=== PATIENT | female | born 1990 | race Caucasian/White ===

== ENCOUNTER 2025-02-21 23:08 | Emergency (ER) | payer SELFPAY ==
[2025-02-22 00:03] LABS: Sqamous Epithelial <5 /HPF (None Seen); Urine Crystals Unidentified Few /HPF (None Seen); Urine Micro Reflex YN NO BILL MICROSCOPIC
[2025-02-22 00:08] LABS: ALT/SGPT 46 U/L (13-56); AST/SGOT 230 U/L (15-37); Albumin 2.7 g/dL (3.4-5.0); Albumin/Globulin Ratio 0.6 (1.1-1.8); Alkaline Phosphatase 216 U/L (45-117); Anion Gap 11.6 mEq/L (5.0-15.0); Bilirubin Indirect, Calculated 0.4 mg/dL (0.2-0.8); Globulin 4.6 g/dL (2.3-3.5); Glucose Level 86 mg/dL (74-106); Magnesium 2.0 mg/dL (1.6-2.4); NT PRO-BNP 127 pg/mL (<125); Potassium 3.6 mEq/L (3.5-5.1)
[2025-02-22 00:24] LABS: BUN Blood Urea Nitrogen < 3 mg/dL (7-18); Troponin High Sensitivity < 3.0 pg/mL (<58.9)
[2025-02-22 00:43] LABS: Absolute Lymphocytes (CBC) 1.6 K/uL (0.7-4.9); Hematocrit 27.2 % (36.0-45.0); Hemoglobin 9.3 g/dL (12.0-15.0); MCH 33.5 pg (27.0-35.0); MCHC 34.3 g/dL (32.0-36.0); MCV 97.7 fL (80-100); MPV 8.6 fL (7.6-11.3); Nucleated RBC Absolute Count 0.0 (0-0); Nucleated Red Blood Cells % 0.2 % (0-0); RBC Red Blood Cell Count 2.78 M/uL (3.86-4.86); White Blood Count 4.70 thou/uL (4.3-10.9)
--- NOTE | 2025-02-22 02:00 | RAD REPORT ---
EXAM DESCRIPTION: Chest Single View CLINICAL HISTORY: SOB COMPARISON: None TECHNIQUE: Single AP view of the chest. FINDINGS: Lung volumes adequate. Cardiac silhouette is normal in size. No pneumothorax. No large pleural effusion. No focal consolidation. No acute bony finding. IMPRESSION: No evidence of acute cardiopulmonary disease. Electronically signed by: Matthias Feldman MD 02/22/2025 01:53 AM CDT RP TYG Due to temporary technical issues with the PACS/[employer] reporting system, reports are being fiorella d by the in-house radiologist without review as a courtesy to ensure prompt reporting the interpreting radiologist is fully responsible for the content of the report. Transcribed Date/Time: 02/22/2025 1:59 AM
--- NOTE | 2025-02-22 04:39 | ER ---
Nurse's Notes [facility] Name: Pernell Moses Age: 34 yrs Sex: Female : 1990 Arrival Date: 02/21/2025 Time: 23:08 Bed 16 Private MD: Diagnosis: Thrombocytopenia, unspecified;Ascities;Anemia, unspecified;Other cholelithiasis without obstruction Presentation: 02/21 23:19 Chief complaint: Patient states: I have this new swelling of the belly legs and feet. bm8 Coronavirus screen: At this time, the client does not indicate any symptoms associated with coronavirus-19. Ebola Screen: Patient negative for fever greater than or equal to 101.5 degrees Fahrenheit, and additional compatible Ebola Virus Disease symptoms Patient denies exposure to infectious person. Patient denies travel to an Ebola-affected area in the 21 days before illness onset. No symptoms or risks identified at this time. Initial Sepsis Screen: Does the patient meet any 2 criteria? No. Patient's initial sepsis screen is negative. Does the patient have a suspected source of infection? No. Patient's initial sepsis screen is negative. Risk Assessment: Do you want to hurt yourself or someone else? Patient reports no desire to harm self or others. Onset of symptoms was February 17, 2025. 23:19 Method Of Arrival: Ambulatory bm8 23:19 Acuity: DELORES 3 bm8 Triage Assessment: 23:21 General: Appears in no apparent distress. uncomfortable, Behavior is calm, cooperative, bm8 appropriate for age. Pain: Complains of pain in abdomen, right foot, left foot, right leg and left leg Pain currently is 5 out of 10 on a pain scale. Quality of pain is described as pressure. GI: Abdomen is round distended, noted to have ascites, Bowel sounds tympanic in right upper quadrant, left upper quadrant, right lower quadrant and left lower quadrant Reports lower abdominal pain, upper abdominal pain. 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 - Infectious Disease History:: Denies. - Social history:: Smoking status: Reported history of juuling and/or vaping. Patient uses alcohol, on a daily basis. Patient/guardian denies using street drugs. Screenin:27 [facility] ED Fall Risk Assessment (Adult) History of falling in the last 3 months, kt5 including since admission No falls in past 3 months (0 pts) Confusion or Disorientation No (0 pts) Intoxicated or Sedated No (0 pts) Impaired Gait No (0 pts) Mobility Assist Device Used No (0 pt) Altered Elimination No (0 pt) Score/Fall Risk Level 0 - 2 = Low Risk. Abuse screen: Denies threats or abuse. Nutritional screening: No deficits noted. Tuberculosis screening: No symptoms or risk factors identified. 23:46 Clinical [place] Withdrawal Assessment for Alcohol, revised ([facility]): kt5 Nausea/Vomitin - No nausea or vomiting Headache: 0 - Not present Paroxysmal Sweats: 0 - No sweats visible Anxiety: 0 - No anxiety, at ease Agitation: 0 - Normal actiivty Tremor: 0 - No tremor Auditory Disturbances: 0 - Not present Visual Disturbances: 0 - Not present Tactile Disturbances: 0 - None Orientation and Clouding of Sensorium: 0 - Oriented and can do serial additions. 02/22 03:38 Clinical [place] Withdrawal Assessment for Alcohol, revised ([facility]): kt5 Nausea/Vomitin - No nausea or vomiting Headache: 0 - Not present Paroxysmal Sweats: 0 - No sweats visible Anxiety: 0 - No anxiety, at ease Agitation: 0 - Normal actiivty Tremor: 0 - No tremor Auditory Disturbances: 0 - Not present Visual Disturbances: 0 - Not present Tactile Disturbances: 0 - None Orientation and Clouding of Sensorium: 0 - Oriented and can do serial additions. 07:04 Clinical [place] Withdrawal Assessment for Alcohol, revised ([facility]): kt5 Nausea/Vomitin - No nausea or vomiting Headache: 0 - Not present Paroxysmal Sweats: 0 - No sweats visible Anxiety: 0 - No anxiety, at ease Agitation: 0 - Normal actiivty Tremor: 0 - No tremor Auditory Disturbances: 0 - Not present Visual Disturbances: 0 - Not present Tactile Disturbances: 0 - None Orientation and Clouding of Sensorium: 0 - Oriented and can do serial additions. Assessment: 02/21 23:27 General: Appears in no apparent distress. uncomfortable, Behavior is calm, cooperative, kt5 appropriate for age, Smells of alcohol. Pain: Complains of pain in generalized body pain, bilateral flank pain, abd pain, bilateral lega and feet pain. Pain:. Neuro: No deficits noted. [place] Agitation-Sedation Scale (RASS): 0 - Alert and Calm Level of Consciousness is awake, alert, obeys commands, Oriented to person, place, time, situation, Appropriate for age. Cardiovascular: No deficits noted. Denies chest pain, Heart tones S1 S2 present Capillary refill < 3 seconds Clubbing of nail beds is absent JVD is absent. Respiratory: Reports shortness of breath at rest on exertion Airway is patent Trachea midline Respiratory effort is even, unlabored, Respiratory pattern is regular, symmetrical. GI: Abdomen is round distended, Bowel sounds present X 4 quads. Abd is soft X 4 quads Abdomen is tender to palpation X 4 quads. Reports lower abdominal pain, upper abdominal pain, bloating, Pain is 5 out of 10 on a pain scale. GI: Reports diarrhea, nausea, vomiting. : No deficits noted. No signs and/or symptoms were reported regarding the genitourinary system. EENT: No deficits noted. No signs and/or symptoms were reported regarding the EENT system. Derm: No deficits noted. No signs and/or symptoms reported regarding the dermatologic system. Skin is intact, is healthy with good turgor, Skin is dry, Skin is normal. Musculoskeletal: No deficits noted. No signs and/or symptoms reported regarding the musculoskeletal system. 23:55 General: tech at for pcxr. kt5 02/22 00:24 Reassessment: Patient appears in no apparent distress at this time. No changes from kt5 previously documented assessment. Patient and/or family updated on plan of care and expected duration. Pain level reassessed. Patient is alert, oriented x 3, equal unlabored respirations, skin warm/dry/pink. 01:24 Reassessment: Patient appears in no apparent distress at this time. No changes from kt5 previously documented assessment. Patient and/or family updated on plan of care and expected duration. Pain level reassessed. Patient is alert, oriented x 3, equal unlabored respirations, skin warm/dry/pink. Patient states symptoms have improved. 02:17 Reassessment: Patient appears in no apparent distress at this time. No changes from kt5 previously documented assessment. Patient and/or family updated on plan of care and expected duration. Pain level reassessed. Patient is alert, oriented x 3, equal unlabored respirations, skin warm/dry/pink. Patient states symptoms have improved. 02:18 General: pt to ct with tech. kt5 03:00 Reassessment: Patient appears in no apparent distress at this time. No changes from kt5 previously documented assessment. Patient and/or family updated on plan of care and expected duration. Pain level reassessed. Patient is alert, oriented x 3, equal unlabored respirations, skin warm/dry/pink. Patient states symptoms have improved. 04:09 Reassessment: Patient appears in no apparent distress at this time. No changes from kt5 previously documented assessment. Patient and/or family updated on plan of care and expected duration. Pain level reassessed. Patient is alert, oriented x 3, equal unlabored respirations, skin warm/dry/pink. Patient states symptoms have improved. 05:01 Reassessment: Patient appears in no apparent distress at this time. No changes from kt5 previously documented assessment. Patient and/or family updated on plan of care and expected duration. Pain level reassessed. Patient is alert, oriented x 3, equal unlabored respirations, skin warm/dry/pink. Patient states symptoms have improved. 06:01 Reassessment: Patient appears in no apparent distress at this time. No changes from kt5 previously documented assessment. Patient and/or family updated on plan of care and expected duration. Pain level reassessed. Patient is alert, oriented x 3, equal unlabored respirations, skin warm/dry/pink. Patient denies pain at this time. Patient states feeling better. Patient states symptoms have improved. 06:15 General: report given to Nam arcos at [facility], all questions answered. kt5 07:04 Reassessment: Patient appears in no apparent distress at this time. No changes from kt5 previously documented assessment. Patient and/or family updated on plan of care and expected duration. Pain level reassessed. Patient is alert, oriented x 3, equal unlabored respirations, skin warm/dry/pink. Patient denies pain at this time. Patient states feeling better. Patient states symptoms have improved. Vital Signs: 02/21 23:19 BP 103 / 84; Pulse 90; Resp 18; Temp 98.1; Pulse Ox 100% ; Weight 47.49 kg; Pain 5/10; bm8 1011 00:24 BP 100 / 62; Pulse 87; Resp 18; Pulse Ox 98% on R/A; kt5 01:24 BP 90 / 59; Pulse 89; Resp 16; Pulse Ox 96% ; Pain 3/10; kt5 02:17 BP 102 / 63; Pulse 86; Resp 16; Pulse Ox 99% ; kt5 03:00 Pulse 87; Resp 16; Pulse Ox 96% ; kt5 04:09 BP 91 / 56; Pulse 81; Resp 16; Pulse Ox 94% ; Pain 0/10; kt5 05:01 BP 90 / 57; Pulse 82; Resp 16; Pulse Ox 96% ; Pain 0/10; kt5 06:01 BP 91 / 60; Pulse 82; Resp 16; Pulse Ox 99% ; kt5 06:18 BP 92 / 65; Pulse 81; Resp 16; Temp 98.6; Pulse Ox 99% ; Pain 0/10; kt5 07:04 BP 103 / 70; Pulse 89; Resp 16; Temp 98.4; Pulse Ox 100% ; Pain 0/10; kt5 07:19 BP 100 / 67; Pulse 79; Resp 13; Pulse Ox 99% ; bp 10/10 23:19 Pain Scale: Adult bm8 01:24 Pain Scale: Adult kt5 04:09 Pain Scale: Adult kt5 05:01 Pain Scale: Adult kt5 06:18 Pain Scale: Adult kt5 07:04 Pain Scale: Adult kt5 ED Course: 02/21 23:11 Patient arrived in ED. mr 23:12 Prince Thakur DO is Attending Physician. ms3 23:16 Hamida Leong, RACHEAL is Primary Nurse. kt5 23:21 Triage completed. bm8 23:21 Arm band placed on right wrist. bm8 23:27 Patient has correct armband on for positive identification. Bed in low position. Call kt5 light in reach. Side rails up X 1. Adult w/ patient. Client placed on continuous cardiac and pulse oximetry monitoring. NIBP monitoring applied. Door closed. Noise minimized. Warm blanket given. Pillow given. 23:27 Inserted saline lock: 18 gauge in left forearm, using aseptic technique. Blood kt5 collected. Flushed with 10 mL NS. 23:35 Basic Metabolic Panel Sent. kt5 23:35 CBC with Diff Sent. kt5 23:35 LFT's Sent. kt5 23:35 Magnesium Sent. kt5 23:35 NT PRO-BNP Sent. kt5 23:35 Troponin HS Sent. kt5 23:44 UA W/ Microscopic Sent. kt5 23:46 Provided Education on: drinking and consequences . kt5 23:46 No provider procedures requiring assistance completed. kt5 02/22 00:35 XRAY Chest (1 view) In Process Unspecified. EDMS 00:36 CBC with Diff Sent. kt5 02:22 CT Abd/Pelvis - IV Contrast Only In Process Unspecified. EDMS 03:38 Report given to miriam arcos, all questions answered. kt5 05:09 Inserted saline lock: 18 gauge in right forearm, using aseptic technique. Flushed with kt5 10 mL NS. Administered Medications: 05:42 CANCELLED (Physician Discretion): ns 0.9% 1000 ml IV at 1000 ml once; to be given as a ms3 bolus over 60 minutes 05:53 Drug: Albumin IVPB 25 grams 100 ml IVPB once; (Note: Albumin 25% concentration) Volume: ha1 100 ml; Route: IVPB; Site: left wrist; 06:18 Follow up: Response: No adverse reaction kt5 05:53 Drug: NS 0.9% IV 500 ml IV at bolus once; to be given as a bolus over 30 minutes Route: ha1 IV; Rate: bolus; Site: left wrist; 07:12 Follow up: IV Status: Completed infusion; IV Intake: 500ml kt5 Medication: 02/21 23:27 VIS not applicable for this client. kt5 Intake: 02/22 07:12 IV: 500ml; Total: 500ml. kt5 Outcome: 04:38 ER care complete, transfer ordered by . ms3 07:53 Patient left the ED. ll1 Signatures: Dispatcher [employer] EDMS MujicaMayra ybarra, Reg Reg mr Saturnino Armas, RN RN Keaton Linares RN RN ll1 Prince Thakur DO DO ms3 Hannah Guerrero, RN RN ha1 Benson Ye, RN RN bm8 Hamida Leong, RN RN kt5 Corrections: (The following items were deleted from the chart) 02/21 23:45 23:27 Derm: No deficits noted. No signs and/or symptoms reported regarding the kt5 dermatologic system. Skin is intact, Skin is dry, Skin is kt5 02/22 07:08 07:04 Clinical [place] Withdrawal Assessment for Alcohol, revised ([facility]-Ar): kt5 Nausea/Vomitin - No nausea or vomiting Headache: 0 - Not present Paroxysmal Sweats: 0 - No sweats visible Anxiety: 0 - No anxiety, at ease Agitation: 0 - Normal actiivty Tremor: 0 - No tremor Auditory Disturbances: 0 - Not present Visual Disturbances: 0 - Not present Tactile Disturbances: 0 - None Orientation and Clouding of Sensorium: 0 - Oriented and can do serial additions kt5
--- NOTE | 2025-02-22 04:39 | EDPHYS ---
Physician Documentation [facility] Name: Pernell Moses Age: 34 yrs Sex: Female : 1990 Arrival Date: 02/21/2025 Time: 23:08 Bed 16 Private MD: ED Physician Prince Thakur HPI: 02/21 23:31 This 34 yrs old Female presents to ER via Ambulatory with complaints of Abdominal ms3 Swelling, Feet Swelling, Leg Swelling. 23:31 34-year-old female with no past medical history presents to the emergency department ms3 for lower extremity swelling, abdominal swelling, shortness of breath. Patient states she was seen at [facility] yesterday and was given fluids and had a chest x-ray performed and was told everything was okay and was discharged. Patient states her discomfort is currently a 5/10 and described as pressure in her abdomen and lower extremities due to swelling.. 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 - Infectious Disease History:: Denies. - Social history:: Smoking status: Reported history of juuling and/or vaping. Patient uses alcohol, on a daily basis. Patient/guardian denies using street drugs. ROS: 23:31 Constitutional: Negative for fever, and chills. Cardiovascular: Negative for chest ms3 pain, and palpitations. 23:31 MS/Extremity: Negative for injury and deformity, 23:31 Cardiovascular: Positive for edema, 23:31 Respiratory: Positive for shortness of breath, 23:31 MS/extremity: Exam: 23:31 Constitutional: This is a well developed, well nourished patient who is awake, alert, ms3 and in no acute distress. Cardiovascular: Regular rate and rhythm with a normal S1 and S2. No gallops, murmurs, or rubs. Normal PMI, no JVD. No pulse deficits. Respiratory: Lungs have equal breath sounds bilaterally, clear to auscultation and percussion. No rales, rhonchi or wheezes noted. No increased work of breathing, no retractions or nasal flaring. Abdomen/GI: Soft, non-tender, with normal bowel sounds. No distension or tympany. No guarding or rebound. No evidence of tenderness throughout. Skin: Warm, dry with normal turgor. Normal color with no rashes, no lesions, and no evidence of cellulitis. 23:31 Musculoskeletal/extremity: Extremities: all appear grossly normal, with no appreciated pain with palpation, No pitting edema noted. 02/22 00:16 ECG was reviewed by the Attending Physician. ms3 Vital Signs: 02/21 23:19 BP 103 / 84; Pulse 90; Resp 18; Temp 98.1; Pulse Ox 100% ; Weight 47.49 kg; Pain 5/10; bm8 02/22 00:24 BP 100 / 62; Pulse 87; Resp 18; Pulse Ox 98% on R/A; kt5 01:24 BP 90 / 59; Pulse 89; Resp 16; Pulse Ox 96% ; Pain 3/10; kt5 02:17 BP 102 / 63; Pulse 86; Resp 16; Pulse Ox 99% ; kt5 03:00 Pulse 87; Resp 16; Pulse Ox 96% ; kt5 04:09 BP 91 / 56; Pulse 81; Resp 16; Pulse Ox 94% ; Pain 0/10; kt5 05:01 BP 90 / 57; Pulse 82; Resp 16; Pulse Ox 96% ; Pain 0/10; kt5 06:01 BP 91 / 60; Pulse 82; Resp 16; Pulse Ox 99% ; kt5 06:18 BP 92 / 65; Pulse 81; Resp 16; Temp 98.6; Pulse Ox 99% ; Pain 0/10; kt5 07:04 BP 103 / 70; Pulse 89; Resp 16; Temp 98.4; Pulse Ox 100% ; Pain 0/10; kt5 07:19 BP 100 / 67; Pulse 79; Resp 13; Pulse Ox 99% ; bp 02/21 23:19 Pain Scale: Adult bm8 01:24 Pain Scale: Adult kt5 04:09 Pain Scale: Adult kt5 05:01 Pain Scale: Adult kt5 06:18 Pain Scale: Adult kt5 07:04 Pain Scale: Adult kt5 MDM: 02/21 23:31 Differential Diagnosis Heart failure versus liver disease versus nephrotic syndrome. ms3 23:33 Medical Screening Exam initiated ms3 02/22 05:44 Data reviewed: vital signs, nurses notes, lab test result(s), radiologic studies, and ms3 as a result, I will transfer patient to [facility]. Consideration of Admission/Observation Patient transferred to [facility]. Management of patient was discussed with the following: Hospitalist: Dr Shi. I considered the following discharge prescriptions or medication management in the emergency department Medications were administered in the Emergency Department. See MAR. Independent interpretation of the following test(s) in the Emergency Department CT Scan: My interpretation is CT abdomen and pelvis images reviewed by me show gallstone with ascities. Counseling: I had a detailed discussion with the patient and/or guardian regarding the historical points, exam findings, and any diagnostic results supporting the discharge/admit diagnosis, lab results, radiology results, the need to transfer to another facility, [facility] does not immediately have the required specialist. ED course: Discussed case with Dr Shi and he accepts patient to telemetry bed. Will give 25 gm Albumin and 500 ml NS bolus for BP.. 02/21 23:30 Order name: Basic Metabolic Panel; Complete Time: 01:10 ms3 02/21 23:30 Order name: CBC with Diff; Complete Time: 01:10 ms3 02/21 23:30 Order name: LFT's; Complete Time: 01:10 ms3 02/21 23:30 Order name: Magnesium; Complete Time: 01:10 ms3 02/21 23:30 Order name: NT PRO-BNP; Complete Time: 01:10 ms3 02/21 23:30 Order name: Troponin HS; Complete Time: 01:10 ms3 02/21 23:30 Order name: UA W/ Microscopic; Complete Time: 01:10 ms3 02/22 04:37 Order name: PT-INR ms3 02/21 23:30 Order name: XRAY Chest (1 view); Complete Time: 05:37 ms3 02/22 01:15 Order name: CT Abd/Pelvis - IV Contrast Only ms3 02/21 23:30 Order name: Cardiac monitoring; Complete Time: 23:35 ms3 02/21 23:30 Order name: EKG - Nurse/Tech; Complete Time: 00:37 ms3 02/21 23:30 Order name: IV Saline Lock; Complete Time: 23:35 ms3 02/21 23:30 Order name: Labs collected and sent; Complete Time: 23:35 ms3 02/21 23:30 Order name: O2 Per Protocol; Complete Time: 23:35 ms3 02/21 23:30 Order name: O2 Sat Monitoring; Complete Time: 23:35 ms3 EC:16 Rate is 81 beats/min. Rhythm is regular. QRS [place] is Normal. [place] interval is normal. QRS ms3 interval is normal. Clinical impression: Normal ECG. Interpreted by me. Reviewed by me. Administered Medications: 05:42 CANCELLED (Physician Discretion): ns 0.9% 1000 ml IV at 1000 ml once; to be given as a ms3 bolus over 60 minutes 05:53 Drug: Albumin IVPB 25 grams 100 ml IVPB once; (Note: Albumin 25% concentration) Volume: ha1 100 ml; Route: IVPB; Site: left wrist; 06:18 Follow up: Response: No adverse reaction kt5 05:53 Drug: NS 0.9% IV 500 ml IV at bolus once; to be given as a bolus over 30 minutes Route: ha1 IV; Rate: bolus; Site: left wrist; 07:12 Follow up: IV Status: Completed infusion; IV Intake: 500ml kt5 Disposition Summary: 02/22/25 04:38 Transfer Ordered Notes: Transfer Location: [facility] ms3 Reason: Higher level of care ms3 Condition: Stable ms3 Problem: new ms3 Symptoms: are unchanged ms3 Accepting Physician: Dr Shi(02/22/25 07:53) ll1 Diagnosis - Thrombocytopenia, unspecified ms3 - Ascities ms3 - Anemia, unspecified ms3 - Other cholelithiasis without obstruction ms3 Forms: - Medication Reconciliation Form ms3 - SBAR form ms3 Signatures: Dispatcher [employer] EDMS Keaton Gross RN RN ll1 Prince Thakur DO DO ms3 Hannah Guerrero RN RN ha1 Benson Ye RN RN bm8 Hamida Leong RN kt5 Corrections: (The following items were deleted from the chart) 02/21 23:31 23:31 Chest Single View+RAD.RAD.BRZ ordered. EDMS EDMS 02/22 04:37 04:37 PROTIME (+INR)+COAG.LAB.BRZ ordered. EDMS EDMS 05:42 05:41 NS 0.9% IV 1000 ml IV at 1000 ml once; to be given as a bolus over 60 minutes ms3 ordered. ms3 05:44 04:38 ms3 ms3 07:53 05:44 Dr Shi ms3 ll1
[2025-02-22] MEDS ORDERED: NA CHLORIDE 0.9% 500 ML ONE (05:46)
[2025-02-22] MEDS ORDERED: ALBUMIN HUMAN 25% 100 ML IV ONE (05:47)
--- NOTE | 2025-02-22 06:41 | RAD REPORT ---
EXAM: CT Abdomen and Pelvis With Intravenous Contrast CLINICAL HISTORY: The patient is 34 years old and is Female; Abdominal swelling, elevated liver enz ymes TECHNIQUE: Axial computed tomography images of the abdomen and pelvis with intravenous contrast. Sagittal and coronal reformatted images were created and reviewed. This CT exam was performed using one or more of the following dose reduction techniques: automated exposure control, adjustmen t of the mA and/or kV according to patient size, and/or use of iterative reconstruction technique. COMPARISON: No relevant prior studies available. FINDINGS: Lung bases: Unremarkable. No mass. No consolidation. ABDOMEN: Liver: Heterogeneous low density in the liver without mass identified. Gallbladder and bile ducts: Distended gallbladder with cholelithiasis. No ductal dilation. Pancreas: No findings to suggest acute pancreatitis. No mass visualized. No ductal dilation. Spleen: Unremarkable. No splenomegaly. Adrenals: Unremarkable. No mass. Kidneys and ureters: Unremarkable. No solid mass. No hydronephrosis. Stomach and bowel: The colon is not well distended. Submucosal fat infiltration noted in the righ t and transverse colon. No small bowel dilatation or obstruction stomach is not well distended. PELVIS: Appendix: The appendix is not identified with certainty. Bladder: Bladder is full but otherwise unremarkable. Reproductive: Unremarkable as visualized. ABDOMEN and PELVIS: Intraperitoneal space: Mild ascites is present in the abdomen and pelvis. No free air. No abscess. Bones/joints: No acute fracture visualized. No dislocation. Soft tissues: Unremarkable. Vasculature: Unremarkable. No abdominal aortic aneurysm. Lymph nodes: No pathologically enlarged lymph nodes. IMPRESSION: 1. Heterogeneous low density in the liver without mass identified. Findings may be secondary to zena atohepatitis and/or other hepatic parenchymal disease. Ascites is present. 2. Distended gallbladder with cholelithiasis. Electronically signed by: Adalgisa Contreras MD 02/22/2025 04:21 AM CDT RP V2 Due to temporary technical issues with the PACS/[employer] reporting system, reports are being fiorella d by the in-house radiologist without review as a courtesy to ensure prompt reporting the interpreting radiologist is fully responsible for the content of the report. Transcribed Date/Time: 02/22/2025 6:41 AM
[2025-02-22 08:24] VITALS: TEMP 98.4
[2025-02-22 08:26] VITALS: BP 100/67; O2SAT 99
== END 2025-02-22 07:53 | disposition short-term general hospital (02) ==
LOC: ER 23:08
DX: K80.80 Other cholelithiasis without obstruction (principal); R18.8 Other ascites; D69.6 Thrombocytopenia, unspecified; D64.9 Anemia, unspecified
CPT/HCPCS: 36415; 71045; 74177; 80048; 80076; 81001; 83735; 83880; 84484; 85025; 93005; 96361; 96374; 99284; J7040; P9047; Q9967